=== PATIENT | female | born 1930 | race Caucasian/White ===

== ENCOUNTER 2017-01-15 10:21 | Inpatient (IN) | payer OTHER ==
--- NOTE | 2017-01-15 10:54 | PDOC ---
History of Present Illness <Susanna Whalen - Last Filed: 01/15/17 12:47> - General History Source: Patient, Family (Daughter and ) Exam Limitations: No Limitations - History of Present Illness Initial Comments: 01/15/17 11:42 The patient is a 86 year old female with significant PMH of coronary artery disease, myocardial infarction with stents, hypertension, hyperlipidemia and a right knee replacement who presents to the emergency department with lower extremity weakness that began approximately 10 days ago. The daughter states that the patient was fine about two weeks ago, but for the past 10 days has been unable to walk without a walker. The daughter reports that the patient drags her right leg when she walks. The daughter also reports recent memory loss. No other symptoms were reported by the patient. The patient is currently taking Livalo for her hyperlipidemia. The patient denies chest pain, shortness of breath, headache and dizziness. Denies fever, chills, nausea, vomit, diarrhea and constipation. Allergies: NKA Past surgical history: UT with stents Social history: No reported alcohol, drug, or alcohol use. PCP: Dr. Kristina Sexton <Bri Shook - Last Filed: 01/15/17 15:49> - General Chief Complaint: Weakness Stated Complaint: LEG WEAKNESS Time Seen by Provider: 01/15/17 10:54 Past History <Susanna Whalen - Last Filed: 01/15/17 12:47> <Bri Shook - Last Filed: 01/15/17 15:49> - Past Medical History Allergies/Adverse Reactions: Allergies Allergy/AdvReac Type Severity Reaction Status Date / Time rosuvastatin calcium AdvReac Verified 01/15/17 10:36 [From [place]] Home Medications: Ambulatory Orders Alprazolam [Xanax] 0.25 mg PO Q8H 01/15/17 Aspirin [ASA -] 81 mg PO DAILY 01/15/17 Diphenhydramine HCl [Benadryl -] 25 mg PO HS PRN 01/15/17 Esomeprazole Magnesium [Nexium 24Hr] 22.3 mg PO DAILY 01/15/17 Hydrochlorothiazide [Hctz -] 25 mg PO DAILY 01/15/17 Pitavastatin Calcium [Livalo] 2 mg PO DAILY 01/15/17 Ramipril 10 mg PO BID 01/15/17 Review of Systems - Review of Systems Able to Perform ROS?: Yes Comments:: 01/15/17 11:44 GENERAL/CONSTITUTIONAL: No fever or chills. No weakness. HEAD, EYES, EARS, NOSE AND THROAT: No change in vision. No ear pain or discharge. No sore throat. CARDIOVASCULAR: No chest pain or shortness of breath. RESPIRATORY: No cough, wheezing, or hemoptysis. GASTROINTESTINAL: No nausea, vomiting, diarrhea or constipation. GENITOURINARY: No dysuria, frequency, or change in urination. MUSCULOSKELETAL: (+) Lower extremity weakness. No neck or back pain. SKIN: No rash NEUROLOGIC: (+) Memory loss. No headache, vertigo, loss of consciousness. ENDOCRINE: No increased thirst. No abnormal weight change. HEMATOLOGIC/LYMPHATIC: No anemia, easy bleeding, or history of blood clots. ALLERGIC/IMMUNOLOGIC: No hives or skin allergy. <Bri Shook - Last Filed: 01/15/17 15:49> *Physical Exam - Vital Signs 01/15/17 11:51 Vital Signs: HR 83 Pulse 85 SpO2 97 RR 20 BP 165/88 - Physical Exam Comments: 01/15/17 11:46 GENERAL: Awake, alert, and fully oriented. HEAD: No signs of trauma EYES: PERRLA, EOMI, sclera anicteric, conjunctiva clear ENT: Auricles normal inspection, hearing grossly normal, nares patent, oropharynx clear without exudates. Moist mucosa NECK: Normal ROM, supple, no lymphadenopathy, JVD, or masses LUNGS: Breath sounds equal, clear to auscultation bilaterally. No wheezes, and no crackles HEART: Regular rate and rhythm, normal S1 and S2, no murmurs, rubs or gallops ABDOMEN: Soft, nontender, normoactive bowel sounds. No guarding, no rebound. No masses EXTREMITIES: (+) Right lower extremity weakness, 4/5 plantar flexion, 4/5 dorsiflexion. No clubbing or cyanosis. No cords, erythema, or tenderness NEUROLOGICAL: Cranial nerves II through XII grossly intact. Normal speech, normal gait SKIN: Warm, Dry, normal turgor, no rashes or lesions noted. <Bri Shook - Last Filed: 01/15/17 15:49> ED Treatment Course - LABORATORY CBC & Chemistry Diagram: 01/15/17 11:42 01/15/17 11:42 <Susanna Whalen - Last Filed: 01/15/17 12:47> - LABORATORY CBC & Chemistry Diagram: 01/15/17 11:42 01/15/17 11:42 <Bri Shook - Last Filed: 01/15/17 15:49> Medical Decision Making - Medical Decision Making 01/15/17 12:47 Pt presents to the ED complaining of generalized malaise and weakness for the last 10 days. On exam, I find subtle R foot and ankle weakness. Rest of exam and lab work are unremarkable. CT head results pending. Case discussed with Dr. Sexton--apparently the patient has a recent history of UT with similar presentation that lead to stents three months ago. Will admit for neurologic and cardiac work up. <Susanna Whalen - Last Filed: 01/15/17 12:47> - Medical Decision Making Exam: Chest XR Portable Who interpreted: Dr. Jerez Reviewed by: Dr. Whalen Impression: [id number] cardiomegaly. Mild atelectatic changes in the right lung base, medially. There is suggestion of a moderate-sized hiatus hernia. Correlation with CT scan would be more sensitive if clinically indicated. Exam: Chest PA Lat Who interpreted: Dr. Jerez Reviewed by: Dr. Whalen Hiatal hernia. No acute pulmonary pathology. Exam: Head CT w/o contrast Who interpreted: Dr. Jerez Reviewed by: Dr. Whalen Impression: Generalized volume loss with moderate to marked ventricular dilatation and periventricular chronic microvascular ischemic disease changes. No gross acute intracranial pathology is identified. Correlate clinically to determine further evaluation and follow-up. <Bri Shook - Last Filed: 01/15/17 15:49> *DC/Admit/Observation/Transfer - Discharge Dispostion Admit: Yes <Susanna Whalen - Last Filed: 01/15/17 12:47> - Attestations Scribe Attestion: Documentation prepared by Bri Shook, acting as medical secretary receptionist for Susanna Whalen MD. <Bri Shook - Last Filed: 01/15/17 15:49> Diagnosis at time of Disposition: Weakness - Discharge Dispostion Condition at time of disposition: Good
[2017-01-15 11:50] LABS: BASOPHIL 0.9 % (0-2.0); EOSINOPHIL 1.5 % (0-4.5); MCH 28.6 pg (25.7-33.7); MCHC 33.2 g/dl (32.0-36.0); MEAN CELL VOLUME 86.2 fl (80-96); MEAN PLT VOLUME 7.7 fl (7.5-11.1); PLATELET COUNT 279 K/MM3 (134-434); RDW 15.1 % (11.6-15.6); WHITE BLOOD COUNT 4.4 K/mm3 (4.0-10.0)
[2017-01-15 12:00] VITALS: BMI 28.2
[2017-01-15 12:13] LABS: ALBUMIN 3.6 g/dl (3.4-5.0); ANION GAP 8 (8-16); BILIRUBIN,TOTAL 0.4 mg/dL (0.2-1.0); CALCIUM 8.9 mg/dL (8.5-10.1); CO2 27 mmol/L (21-32); CREATININE 0.8 mg/dL (0.55-1.02); GLUCOSE,RANDOM 96 mg/dL (74-106); SGOT/AST 22 U/L (15-37); SGPT/ALT 22 U/L (12-78); TOT PROT 7.3 g/dl (6.4-8.2)
[2017-01-15 12:15] LABS: ALK PHOS 110 U/L (45-117); CPK 66 IU/L (26-192); TROPONIN I < 0.02 ng/ml (0.00-0.05)
--- NOTE | 2017-01-15 13:24 | HP ---
Admitting History and Physical - Primary Care Physician PCP: Kristina Sexton S - Admission Chief Complaint: R leg weakness, confusion History of Present Illness: The patient is a 86 year old female with significant PMH of coronary artery disease, myocardial infarction with stents, hypertension, hyperlipidemia and a right knee replacement who presents to the emergency department with lower extremity weakness that began approximately 10 days ago. The daughter states that the patient was fine about two weeks ago (she was going shopping with her ), but for the past 10 days has been unable to walk without a walker. The daughter reports that the patient drags her right leg when she walks. The daughter also reports recent memory loss and some lightheadedness last night *( pt almost felt like passing out but she did not). No other symptoms were reported by the patient. No falls no head trauma. The patient denies chest pain, shortness of breath, headache and dizziness. Denies fever, chills, nausea, vomit, diarrhea and constipation. Allergies: NKA Past surgical history: [place] with stents; R TKR Social history: No reported alcohol, drug, or alcohol use. d/w pt and daughter and daughter in law and at bedside History Source: Patient, Family Member, Medical Record - Past Medical History Cardiovascular: Yes: CAD, HTN, Hyperlipdemia, DE - Smoking History Smoking history: Never smoked Have you smoked in the past 12 months: No - Alcohol/Substance Use Hx Alcohol Use: No History of Substance Use: reports: None - Social History Usual Living Arrangement: Yes: With Spouse ADL: Independent History of Recent Travel: No Home Medications - Allergies Allergies/Adverse Reactions: Allergies Allergy/AdvReac Type Severity Reaction Status Date / Time rosuvastatin calcium AdvReac Verified 01/15/17 10:36 [From [facility]] - Home Medications Home Medications: Ambulatory Orders Alprazolam [Xanax] 0.25 mg PO Q8H 01/15/17 Aspirin [ASA -] 81 mg PO DAILY 01/15/17 Diphenhydramine HCl [Benadryl -] 25 mg PO HS PRN 01/15/17 Esomeprazole Magnesium [Nexium 24Hr] 22.3 mg PO DAILY 01/15/17 Hydrochlorothiazide [Hctz -] 25 mg PO DAILY 01/15/17 Pitavastatin Calcium [Livalo] 2 mg PO DAILY 01/15/17 Ramipril 10 mg PO BID 01/15/17 Family Disease History - Family Disease History Family History: Unremarkable Review of Systems - Review of Systems Constitutional: reports: Weakness (general). denies: Chills, Fever, Lethargy Eyes: denies: Blind Spots, Blurred Vision, Double Vision HENT: denies: Difficult Swallowing, Ear Pain Neck: denies: Stiffness, Tenderness Cardiovascular: denies: Chest Pain, Shortness of Breath Respiratory: denies: Cough, SOB Gastrointestinal: denies: Abdominal Pain, Constipation, Diarrhea, Vomiting Genitourinary: denies: Dysuria, Flank Pain Musculoskeletal: denies: Back Pain, Joint Swelling Integumentary: denies: Rash Neurological: reports: Confusion, Unsteady Gait, Weakness (RLE). denies: Change in LOC, Change in Speech, Dizziness, Numbness Hematology/Lymphatic: denies: Easily Bruised, Excessive Bleeding Psychiatric: denies: Anxiety, Depression Physical Examination Vital Signs: Vital Signs Temperature 97.8 F 01/15/17 10:21 Pulse Rate 94 H 01/15/17 10:21 Respiratory Rate 20 01/15/17 10:21 Blood Pressure 166/88 01/15/17 10:21 O2 Sat by Pulse Oximetry (%) 98 01/15/17 10:21 Constitutional: Yes: No Distress, Calm Eyes: Yes: Conjunctiva Clear HENT: Yes: Atraumatic Neck: Yes: Supple Cardiovascular: Yes: Regular Rate and Rhythm Respiratory: Yes: CTA Bilaterally Gastrointestinal: Yes: Soft. No: Distention, Tenderness Renal/: No: CVA Tenderness - Left, CVA Tenderness - Right Extremities: No: Calf Tenderness, Cold, Cool, Cyanosis Edema: No Integumentary: No: Rash, Venous Stasis Changes Neurological: Yes: WNL, Alert, Oriented ...Motor Strength: WNL, RLE (4/5) Psychiatric: Yes: WNL, Alert, Oriented. No: Agitated, Suicidal Ideation Labs: CBC, BMP 01/15/17 11:42 01/15/17 11:42 Imaging - Results Chest X-ray: Report Reviewed Other: Report Reviewed Assessment/Plan The patient is a 86 year old female with significant PMH of coronary artery disease, myocardial infarction with stents, hypertension, hyperlipidemia and a right knee replacement who presents to the emergency department with lower extremity weakness that began approximately 10 days ago and some recent memory loss. Presyncope but no fall no LOC admit to telemetry cardiology and neurology eval head CT negative; would check brain MRI if R TKR prosthesis is MRI compatible check UA UCx r/o UTI check caritd US, echo CXR noted; will check chest CT no IVC r/o mass continue meds DVT falls PFX d/w pt and family at bedside d/w pt do not get OOB alone, call for help if needs OOB - she understood and she said she will t time 75 min
--- NOTE | 2017-01-15 13:27 | EKG ---
Test Reason : Blood Pressure : / mmHG Vent. Rate : 079 BPM Atrial Rate : 079 BPM P-R Int : 134 ms QRS Dur : 086 ms QT Int : 384 ms P-R-T Axes : 040 023 059 degrees QTc Int : 440 ms NORMAL SINUS RHYTHM NORMAL ECG WHEN COMPARED WITH ECG OF 15-AUG-2006 17:18, NO SIGNIFICANT CHANGE WAS FOUND Confirmed by JESUS HERNANDEZ MD ([id number]) on 01/15/2017 1:27:21 PM Referred By: Confirmed By:JESUS HERNANDEZ MD
--- NOTE | 2017-01-15 14:08 | CON.CARD ---
Consult Consult Specialty:: Cardiology Referred by:: Kristina Sexton MD Reason for Consultation:: CAD h/o PR - History of Present Illness Chief Complaint: Weakness, lethargy, gait disturbance History of Present Illness: The patient is a 86 year old female with significant PMH of coronary artery disease s/p KAY LAD 03/08/2006, mid RCA IN [employer] with bridging collaterals on cath post demand ischemic injury in context of GI bleed, diastolic dysfunction , hypertension/HCVD, hyperlipidemia, s/p right CEA, 4.2 cm AAA and a right knee replacement who presents to the emergency department with lower extremity weakness that began approximately 10 days ago. The daughter states that the patient was fine about two weeks ago, but for the past 10 days has been unable to walk without a walker. The daughter reports that the patient drags her right leg when she walks. The daughter also reports recent memory loss. She denies cardiovascular sxs of chest pain, shortness of breath worse than baseline, near or true syncope, palpitations, orthopnea, PND or LE edema. Denies fever, chills, nausea, vomit, diarrhea and constipation. Has not been taking Bystolic 5 qd and taking Livalo 3 mg qd [facility] primary recommendations. Allergies: NKA Past surgical history: PR with stents Social history: No reported alcohol, drug, or alcohol use. PCP: Dr. Kristina Sexton - History Source History Provided By: Patient Limitations to Obtaining History: No Limitations - Alcohol/Substance Use Hx Alcohol Use: No - Smoking History Smoking history: Never smoked Have you smoked in the past 12 months: No Home Medications - Allergies Allergies/Adverse Reactions: Allergies Allergy/AdvReac Type Severity Reaction Status Date / Time rosuvastatin calcium AdvReac Verified 01/15/17 10:36 [From Crestor] - Home Medications Home Medications: Ambulatory Orders Alprazolam [Xanax] 0.25 mg PO Q8H 01/15/17 Aspirin [ASA -] 81 mg PO DAILY 01/15/17 Diphenhydramine HCl [Benadryl -] 25 mg PO HS PRN 01/15/17 Esomeprazole Magnesium [Nexium 24Hr] 22.3 mg PO DAILY 01/15/17 Hydrochlorothiazide [Hctz -] 25 mg PO DAILY 01/15/17 Pitavastatin Calcium [Livalo] 2 mg PO DAILY 01/15/17 Ramipril 10 mg PO BID 01/15/17 Review of Systems - Review of Systems Constitutional: reports: Lethargy, Malaise, Weakness Neurological: reports: Unsteady Gait Vital Signs: Vital Signs Temperature 97.8 F 01/15/17 10:21 Pulse Rate 96 H 01/15/17 13:53 Respiratory Rate 21 01/15/17 13:53 Blood Pressure 165/96 01/15/17 13:53 O2 Sat by Pulse Oximetry (%) 97 01/15/17 13:53 Constitutional: Yes: No Distress, Calm Neck: Yes: Supple Respiratory: Yes: Regular, CTA Bilaterally Gastrointestinal: Yes: Normal Bowel Sounds, Soft Cardiovascular: Yes: Regular Rate and Rhythm JVD: No Carotid Bruit: No Heart Sounds: Yes: S1, S2 Edema: No - Other Data Labs, Other Data: CBC, BMP 01/15/17 11:42 01/15/17 11:42 Troponin, BNP 01/15/17 11:42 Troponin I < 0.02 Troponin, BNP 01/15/17 11:42 Troponin I < 0.02 NSR @ 79 similar to previous 11/02/2016 Problem List - Problems (1) Coronary artery disease Code(s): I25.10 - ATHSCL HEART DISEASE OF [place] CORONARY ARTERY W/O ANG PCTRS Qualifiers: Coronary Disease-Associated Artery/Lesion type: [place] artery [place] vs. transplanted heart: [place] heart Associated angina: without angina Qualified Code(s): I25.10 - Atherosclerotic heart disease of [place] coronary artery without angina pectoris (2) S/P coronary artery stent placement Code(s): Z95.5 - PRESENCE OF CORONARY ANGIOPLASTY IMPLANT AND GRAFT (3) Hyperlipidemia Code(s): E78.5 - HYPERLIPIDEMIA, UNSPECIFIED Qualifiers: Hyperlipidemia type: pure hypercholesterolemia Qualified Code(s): E78.00 - Pure hypercholesterolemia, unspecified; E78.0 - Pure hypercholesterolemia (4) Hypertensive cardiomyopathy Code(s): I11.9 - HYPERTENSIVE HEART DISEASE WITHOUT HEART FAILURE; I43 - CARDIOMYOPATHY IN DISEASES CLASSIFIED ELSEWHERE Qualifiers: Heart failure presence: without heart failure Qualified Code(s): I11.9 - Hypertensive heart disease without heart failure; I43 - Cardiomyopathy in diseases classified elsewhere; I43 - Cardiomyopathy in diseases classified elsewhere; I43 - Cardiomyopathy in diseases classified elsewhere; I43 - Cardiomyopathy in diseases classified elsewhere (5) Diastolic dysfunction without heart failure Code(s): I51.9 - HEART DISEASE, UNSPECIFIED (6) Carotid stenosis, right Code(s): I65.21 - OCCLUSION AND STENOSIS OF RIGHT CAROTID ARTERY (7) History of right-sided carotid endarterectomy Code(s): Z98.890 - OTHER SPECIFIED POSTPROCEDURAL STATES (8) Abdominal aortic aneurysm (AAA) 3.0 cm to 5.0 cm in diameter in female Code(s): I71.4 - ABDOMINAL AORTIC ANEURYSM, WITHOUT RUPTURE (9) Weakness Code(s): R53.1 - WEAKNESS (10) Hyponatremia Code(s): E87.1 - HYPO-OSMOLALITY AND HYPONATREMIA (11) Gait disturbance Code(s): R26.9 - UNSPECIFIED ABNORMALITIES OF GAIT AND MOBILITY Assessment/Plan 1. Weakness, fatigue, gait instability, failure to thrive possible medication effects 2. CAD s/p PCI (stent), angina pectoris 3. HTN/HCVD 4. Hyperlipidemia 5. Diastolic dysfunction 6. Carotid stenosis s/p right CEA 7. AAA 4.2x4.0 cm 8. Early dementia 9. Hyponatermia referable to HCTZ 10. Myalgias with Crestor P:1. Ruling out for PR, check UA for occult UTI 2. D/c HCTZ, monitor Na recovery 3. Continue ASA 81 qd, Altace 10 bid, resume Bystolic 5 qd and challenge with pravachol 20 qhs as tolerated (Livalo not on formulary) 4. PT, gait training, review outpatient echo scheduled 11/17/2016 5. Thank you for consultative opportunity
[2017-01-15] MEDS: NEBIVOLOL 5 MG TABLET (FP) PO SCH (15:44)
--- NOTE | 2017-01-15 17:11 | CONSULT ---
Consult - text type - Consultation Consultation Note: Neurology History of Present Illness The patient is a 86 year old female with significant PMH of coronary artery disease, myocardial infarction with stents, hypertension, hyperlipidemia and a right knee replacement who presents to the emergency department with lower extremity weakness that began approximately 10 days ago. The daughter states that the patient was fine about two weeks ago, but for the past 10 days has been unable to walk without a walker. The daughter reports that the patient drags her right leg when she walks. The daughter also reports recent memory loss. No other symptoms were reported by the patient. The patient is currently taking Livalo for her hyperlipidemia. She completed CT head which did not show any acute changes. Her limitation may be complicated by prior R knee surgery. However, I would like to check MRI brain to rule out CVA and MRI L spine to evaulate cord. Discussed this with patient and daughter at bedside and they were in agreement. Past History - Past Medical History Allergies/Adverse Reactions: Allergies Allergy/AdvReac Type Severity Reaction Status Date / Time rosuvastatin calcium AdvReac Verified 01/15/17 10:36 [From [facility]] Home Medications: Ambulatory Orders Alprazolam [Xanax] 0.25 mg PO Q8H 01/15/17 Aspirin [ASA -] 81 mg PO DAILY 01/15/17 Diphenhydramine HCl [Benadryl -] 25 mg PO HS PRN 01/15/17 Esomeprazole Magnesium [Nexium 24Hr] 22.3 mg PO DAILY 01/15/17 Hydrochlorothiazide [Hctz -] 25 mg PO DAILY 01/15/17 Pitavastatin Calcium [Livalo] 2 mg PO DAILY 01/15/17 Ramipril 10 mg PO BID 01/15/17 Review of Systems - Review of Systems Able to Perform ROS?: Yes Comments:: 01/15/17 11:44 GENERAL/CONSTITUTIONAL: No fever or chills. No weakness. HEAD, EYES, EARS, NOSE AND THROAT: No change in vision. No ear pain or discharge. No sore throat. CARDIOVASCULAR: No chest pain or shortness of breath. RESPIRATORY: No cough, wheezing, or hemoptysis. GASTROINTESTINAL: No nausea, vomiting, diarrhea or constipation. GENITOURINARY: No dysuria, frequency, or change in urination. MUSCULOSKELETAL: (+) Lower extremity weakness. No neck or back pain. SKIN: No rash NEUROLOGIC: (+) Memory loss. No headache, vertigo, loss of consciousness. ENDOCRINE: No increased thirst. No abnormal weight change. HEMATOLOGIC/LYMPHATIC: No anemia, easy bleeding, or history of blood clots. ALLERGIC/IMMUNOLOGIC: No hives or skin allergy. *Physical Exam Vital Signs Period Temp Pulse Resp BP Sys/Patino Pulse Ox Last 24 Hr 97.8 F 68-96 16-21 158-166/88-96 97-99 GENERAL: Awake, alert, and fully oriented. HEAD: No signs of trauma EYES: PERRLA, EOMI, sclera anicteric, conjunctiva clear ENT: Auricles normal inspection, hearing grossly normal, nares patent, oropharynx clear without exudates. Moist mucosa NECK: Normal ROM, supple, no lymphadenopathy, JVD, or masses LUNGS: Breath sounds equal, clear to auscultation bilaterally. No wheezes, and no crackles HEART: Regular rate and rhythm, normal S1 and S2, no murmurs, rubs or gallops ABDOMEN: Soft, nontender, normoactive bowel sounds. No guarding, no rebound. No masses EXTREMITIES: (+) Right lower extremity weakness, 4/5 plantar flexion, 4/5 dorsiflexion. No clubbing or cyanosis. No cords, erythema, or tenderness NEUROLOGICAL: Cranial nerves II through XII grossly intact. Normal speech, sensory intact, 5-/5 in LLE, 4+/5 in RLE, gait deferred SKIN: Warm, Dry, normal turgor, no rashes or lesions noted. CBCD WBC 4.4 K/mm3 (4.0-10.0) 01/15/17 11:42 RBC 4.29 M/mm3 (3.60-5.2) 01/15/17 11:42 Hgb 12.3 GM/dL (10.7-15.3) 01/15/17 11:42 Hct 37.0 % (32.4-45.2) 01/15/17 11:42 MCV 86.2 fl (80-96) 01/15/17 11:42 MCHC 33.2 g/dl (32.0-36.0) 01/15/17 11:42 RDW 15.1 % (11.6-15.6) 01/15/17 11:42 Plt Count 279 K/MM3 (134-434) 01/15/17 11:42 MPV 7.7 fl (7.5-11.1) 01/15/17 11:42 CMP Sodium 134 mmol/L (136-145) L 01/15/17 11:42 Potassium 4.2 mmol/L (3.5-5.1) 01/15/17 11:42 Chloride 99 mmol/L (98-107) 01/15/17 11:42 Carbon Dioxide 27 mmol/L (21-32) 01/15/17 11:42 Anion Gap 8 (8-16) 01/15/17 11:42 BUN 17 mg/dL (7-18) 01/15/17 11:42 Creatinine 0.8 mg/dL (0.55-1.02) 01/15/17 11:42 Creat Clearance w eGFR > 60 (>60) 01/15/17 11:42 Calcium 8.9 mg/dL (8.5-10.1) 01/15/17 11:42 Total Bilirubin 0.4 mg/dL (0.2-1.0) 01/15/17 11:42 AST 22 U/L (15-37) 01/15/17 11:42 ALT 22 U/L (12-78) 01/15/17 11:42 Alkaline Phosphatase 110 U/L (45-117) 01/15/17 11:42 Total Protein 7.3 g/dl (6.4-8.2) 01/15/17 11:42 Albumin 3.6 g/dl (3.4-5.0) 01/15/17 11:42 CT head reviewed, Impression: Generalized volume loss with moderate to marked ventricular dilatation and periventricular chronic microvascular ischemic disease changes. No gross acute intracranial pathology is identified. Medical Decision Making 86 year old female with significant PMH of coronary artery disease, myocardial infarction with stents, hypertension, hyperlipidemia and a right knee replacement who presents to the emergency department with lower extremity weakness that began approximately 10 days ago. The daughter states that the patient was fine about two weeks ago, but for the past 10 days has been unable to walk without a walker. The daughter reports that the patient drags her right leg when she walks. The daughter also reports recent memory loss. No other symptoms were reported by the patient. The patient is currently taking Livalo for her hyperlipidemia. She completed CT head which did not show any acute changes. Her limitation may be complicated by prior R knee surgery. However, I would like to check MRI brain to rule out CVA and MRI L spine to evaulate cord. Discussed this with patient and daughter at bedside and they were in agreement. May benefit from physcial therapy and possibly rehab placement depending on etiology. Limitation may be more mechanical and Orthopedic in nature but will pursue work up at this time to further evaluate. Consider changing Livalo, possible myagia 2/2 to medication.
[2017-01-15] MEDS: RAMIPRIL 5 MG CAPSULE (FP) PO SCH (21:40)
[2017-01-15] MEDS: HEPARIN NA (PORCINE) 5,000 UNITS/ML 1ML VIAL SQ SCH (21:40)
[2017-01-15] MEDS ORDERED: ATORVASTATIN CA 10 MG TABLET (FP) PO SCH (22:00)
[2017-01-16] MEDS ORDERED: ACETAMINOPHEN 325 MG TABLET (FP) PO PRN (01:00)
[2017-01-16 08:00] LABS: CPK 82 IU/L (26-192)
[2017-01-16 08:06] LABS: THYROID STIMULATING HORMONE 1.84 uIU/ml (0.358-3.74); TROPONIN I < 0.02 ng/ml (0.00-0.05)
--- NOTE | 2017-01-16 08:20 | PN ---
Progress Note, Physician Chief Complaint: OOB to chair; NAD VSS no new c/o consults and tests reviewed and d/w pt - Current Medication List Current Medications: Active Medications Acetaminophen (Tylenol -) 650 mg PO Q6H PRN PRN Reason: FEVER OR PAIN Last Admin: 01/16/17 01:07 Dose: 650 mg Aspirin (Asa -) 81 mg PO DAILY [facility] Atorvastatin Calcium (Lipitor -) 10 mg PO HS [facility] Last Admin: 01/15/17 21:40 Dose: 10 mg Heparin Sodium (Porcine) (Heparin -) 5,000 unit SQ BID [facility] Last Admin: 01/15/17 21:40 Dose: 5,000 unit Nebivolol (Bystolic -) 5 mg PO DAILY [facility] Last Admin: 01/15/17 15:44 Dose: 5 mg Ramipril (Altace -) 10 mg PO BID [facility] Last Admin: 01/15/17 21:40 Dose: 10 mg - Objective Vital Signs: Vital Signs Temperature 97.5 F L 01/16/17 06:49 Pulse Rate 73 01/16/17 06:49 Respiratory Rate 20 01/16/17 06:49 Blood Pressure 160/82 01/16/17 06:49 O2 Sat by Pulse Oximetry (%) 97 01/15/17 21:00 Constitutional: Yes: No Distress, Calm Eyes: Yes: Conjunctiva Clear HENT: Yes: Atraumatic Neck: Yes: Supple Cardiovascular: Yes: Regular Rate and Rhythm Respiratory: Yes: CTA Bilaterally Gastrointestinal: Yes: Soft. No: Distention Genitourinary: No: CVA Tenderness - Left, CVA Tenderness - Right, Hematuria Musculoskeletal: No: Joint Stiffness, Joint Swelling Extremities: No: Cold, Cool, Cyanosis Edema: No Integumentary: No: Rash, Venous Stasis Changes Neurological: Yes: WNL, Alert, Oriented Psychiatric: Yes: WNL, Alert, Oriented. No: Agitated, Suicidal Ideation Labs: CBC, BMP 01/15/17 11:42 01/15/17 11:42 - ....Imaging Other: Report Reviewed Assessment/Plan The patient is a 86 year old female with significant PMH of coronary artery disease, myocardial infarction with stents, hypertension, hyperlipidemia and a right knee replacement who presents to the emergency department with lower extremity weakness that began approximately 10 days ago and some recent memory loss. Presyncope but no fall no LOC admit to telemetry cardiology and neurology f/u head CT negative; will check brain and sp;ine MRI - d/w pt's family knee prosthesis OK is MRI compatible and the cardiac stent is also MRI compatible. check UA UCx r/o UTI; labs pending as ordered check carotid US, echo CXR noted; will check chest CT no IVC r/o mass continue meds PT rtehab eval DVT falls PFX d/w pt and staff again d/w pt do not get OOB alone, call for help if needs OOB - she understood and she said she will t time 40 min
--- NOTE | 2017-01-16 08:53 | PN ---
Progress Note (short form) - Note Progress Note: Chief Complaint: Event noted, notes reviewed, denies any chest pain or dyspnea, weakness is persistent, evaluation in progress History of Present Illness: Seen and examined on telemetry. Event noted, notes reviewed, denies any chest pain or dyspnea, weakness is persistent, evaluation in progress There are no absolute contraindication in proceeding with planned MRI examination from the cardiovascular point of view since her PCI/stent was performed 03/08/2006 and her last coronary agiography was 01/20/2017 and no inetrvention was warranted Medications: Current Medications Acetaminophen (Tylenol -) 650 mg PO Q6H PRN PRN Reason: FEVER OR PAIN Last Admin: 01/16/17 01:07 Dose: 650 mg Aspirin (Asa -) 81 mg PO DAILY [facility] Atorvastatin Calcium (Lipitor -) 10 mg PO HS [facility] Last Admin: 01/15/17 21:40 Dose: 10 mg Heparin Sodium (Porcine) (Heparin -) 5,000 unit SQ BID [facility] Last Admin: 01/15/17 21:40 Dose: 5,000 unit Nebivolol (Bystolic -) 5 mg PO DAILY [facility] Last Admin: 01/15/17 15:44 Dose: 5 mg Ramipril (Altace -) 10 mg PO BID [facility] Last Admin: 01/15/17 21:40 Dose: 10 mg Review of Systems Cardiovascular: As noted above Respiratory: denies: Cough or Sputum Production Gastrointestinal: denies: Nausea, Vomiting, Diarrhea, Constipation or Abdominal Discomfort Musculoskeletal: Lower Extremity weakness Endocrine: No Symptoms Reported Vital Signs: Last Vital Signs Temp Pulse Resp BP Pulse Ox 97.5 F L 73 20 160/82 97 01/16/17 06:49 01/16/17 06:49 01/16/17 06:49 01/16/17 06:49 01/15/17 21:00 Intake & Output 01/13/17 01/14/17 01/15/17 01/16/17 23:59 23:59 23:59 23:59 Intake Total 300 240 Balance 300 240 Weight 175 lb Constitutional: No Distress, Calm Neck: Supple Negative JVD No Bruit Respiratory: Clear to A&P Bilaterally Cardiovascular: S1 S2 Regular Rate and Rhythm Gastrointestinal: Soft Benign Normal Bowel Sounds Ext: No Edema Labs: CBC, BMP 01/15/17 11:42 01/15/17 11:42 Hepatic Panel Total Bilirubin 0.4 mg/dL (0.2-1.0) 01/15/17 11:42 AST 22 U/L (15-37) 01/15/17 11:42 ALT 22 U/L (12-78) 01/15/17 11:42 Alkaline Phosphatase 110 U/L (45-117) 01/15/17 11:42 Albumin 3.6 g/dl (3.4-5.0) 01/15/17 11:42 Troponin, BNP 01/15/17 01/16/17 11:42 05:35 Troponin I < 0.02 < 0.02 Assessment/Plan ASSESSMENT: 1. Bilateral lower extremity weakness with gait instability, etiology to be determined 2. CAD post PCI (stent) angina pectoris 3. 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 HTN/HCVD 5. Hyperlipidemia 6. Carotid stenosis post right CEA 7. History of abdominal aortic aneurysm 8. Organic brain syndrome/early dementia 9. Hyponatermia most likely referable to HCTZ therapy 10. History of myalgia related to Crestor therapy administration PLAN: 1. Continue ASA 2. Continue Altace 3. Continue Bystolic 4. Hold statin therapy and resume Livalo or alternative statin therapy post D/C home 5. Carotid doppler study for evaluation of disease progression 6. As outlined above regarding proceeding with MRI examination Jose Juan Pinzon MD
--- NOTE | 2017-01-16 09:11 | PN ---
Progress Note (short form) - Note Progress Note: Neurology History of Present Illness The patient is a 86 year old female with significant PMH of coronary artery disease, myocardial infarction with stents, hypertension, hyperlipidemia and a right knee replacement who presents to the emergency department with lower extremity weakness that began approximately 10 days ago. The daughter stated that the patient was fine about two weeks ago, but for the past 10 days has been unable to walk without a walker. The daughter reports that the patient drags her right leg when she walks. The daughter reported recent memory loss. No other symptoms were reported by the patient. The patient is currently taking Livalo for her hyperlipidemia. She completed CT head which did not show any acute changes. Her limitation may be complicated by prior R knee surgery. However, I would like to check MRI brain to rule out CVA and MRI L spine to evaulate cord. Discussed this with patient and daughter at bedside yesterday and they were in agreement. The patient today is sitting up in her chair, having breakfast, and does report feeling better. Her exam is limited by pressure pain on strength testing and may be more due to myalgia as opposed to a nerve root or central etiology. AWaiting imaging studies for further diagnosis. Active Medications Acetaminophen (Tylenol -) 650 mg PO Q6H PRN PRN Reason: FEVER OR PAIN Last Admin: 01/16/17 01:07 Dose: 650 mg Aspirin (Asa -) 81 mg PO DAILY [facility] Atorvastatin Calcium (Lipitor -) 10 mg PO HS [facility] Last Admin: 01/15/17 21:40 Dose: 10 mg Heparin Sodium (Porcine) (Heparin -) 5,000 unit SQ BID [facility] Last Admin: 01/15/17 21:40 Dose: 5,000 unit Nebivolol (Bystolic -) 5 mg PO DAILY [facility] Last Admin: 01/15/17 15:44 Dose: 5 mg Ramipril (Altace -) 10 mg PO BID [facility] Last Admin: 01/15/17 21:40 Dose: 10 mg *Physical Exam Vital Signs Period Temp Pulse Resp BP Sys/Patino Pulse Ox Last 24 Hr 97.5 F-98.2 F 68-96 16-21 141-182/77-96 97-99 GENERAL: Awake, alert, and fully oriented. HEAD: No signs of trauma EYES: PERRLA, EOMI, sclera anicteric, conjunctiva clear ENT: Auricles normal inspection, hearing grossly normal, nares patent, oropharynx clear without exudates. Moist mucosa NECK: Normal ROM, supple, no lymphadenopathy, JVD, or masses LUNGS: Breath sounds equal, clear to auscultation bilaterally. No wheezes, and no crackles HEART: Regular rate and rhythm, normal S1 and S2, no murmurs, rubs or gallops ABDOMEN: Soft, nontender, normoactive bowel sounds. No guarding, no rebound. No masses EXTREMITIES: (+) Right lower extremity weakness, 4/5 plantar flexion, 4/5 dorsiflexion. No clubbing or cyanosis. No cords, erythema, or tenderness NEUROLOGICAL: Cranial nerves II through XII grossly intact. Normal speech, sensory intact, 5-/5 in LLE, 4+/5 in RLE, gait deferred SKIN: Warm, Dry, normal turgor, no rashes or lesions noted. CBCD WBC 4.4 K/mm3 (4.0-10.0) 01/15/17 11:42 RBC 4.29 M/mm3 (3.60-5.2) 01/15/17 11:42 Hgb 12.3 GM/dL (10.7-15.3) 01/15/17 11:42 Hct 37.0 % (32.4-45.2) 01/15/17 11:42 MCV 86.2 fl (80-96) 01/15/17 11:42 MCHC 33.2 g/dl (32.0-36.0) 01/15/17 11:42 RDW 15.1 % (11.6-15.6) 01/15/17 11:42 Plt Count 279 K/MM3 (134-434) 01/15/17 11:42 MPV 7.7 fl (7.5-11.1) 01/15/17 11:42 CMP Sodium 134 mmol/L (136-145) L 01/15/17 11:42 Potassium 4.2 mmol/L (3.5-5.1) 01/15/17 11:42 Chloride 99 mmol/L (98-107) 01/15/17 11:42 Carbon Dioxide 27 mmol/L (21-32) 01/15/17 11:42 Anion Gap 8 (8-16) 01/15/17 11:42 BUN 17 mg/dL (7-18) 01/15/17 11:42 Creatinine 0.8 mg/dL (0.55-1.02) 01/15/17 11:42 Creat Clearance w eGFR > 60 (>60) 01/15/17 11:42 Calcium 8.9 mg/dL (8.5-10.1) 01/15/17 11:42 Total Bilirubin 0.4 mg/dL (0.2-1.0) 01/15/17 11:42 AST 22 U/L (15-37) 01/15/17 11:42 ALT 22 U/L (12-78) 01/15/17 11:42 Alkaline Phosphatase 110 U/L (45-117) 01/15/17 11:42 Total Protein 7.3 g/dl (6.4-8.2) 01/15/17 11:42 Albumin 3.6 g/dl (3.4-5.0) 01/15/17 11:42 CT head reviewed, Impression: Generalized volume loss with moderate to marked ventricular dilatation and periventricular chronic microvascular ischemic disease changes. No gross acute intracranial pathology is identified MRI Brain & MRI L spine ordered Medical Decision Making 86 year old female with significant PMH of coronary artery disease, myocardial infarction with stents, hypertension, hyperlipidemia and a right knee replacement who presents to the emergency department with lower extremity weakness that began approximately 10 days ago. The daughter states that the patient was fine about two weeks ago, but for the past 10 days has been unable to walk without a walker. The daughter reports that the patient drags her right leg when she walks. The daughter also reports recent memory loss. No other symptoms were reported by the patient. The patient is currently taking Livalo for her hyperlipidemia. She completed CT head which did not show any acute changes. Her limitation may be complicated by prior R knee surgery. However, I would like to check MRI brain to rule out CVA and MRI L spine to evaulate cord. Discussed this with patient and daughter at bedside and they were in agreement. May benefit from physcial therapy and possibly rehab placement depending on etiology. Limitation may be more mechanical and Orthopedic in nature but will pursue work up at this time to further evaluate. Livalo changed to Lipitor, possible myagia 2/2 to medication.
[2017-01-16] MEDS ORDERED: PT OWN MED DRAWER 7, Y5N ONE (11:02)
[2017-01-16] MEDS: HEPARIN NA (PORCINE) 5,000 UNITS/ML 1ML VIAL SQ SCH ×2 (11:14→21:08)
[2017-01-16] MEDS: ASPIRIN 81 MG CHEWABLE TABLETS PO SCH (11:14)
[2017-01-16] MEDS: RAMIPRIL 5 MG CAPSULE (FP) PO SCH ×2 (11:14→21:08)
[2017-01-16] MEDS: NEBIVOLOL 5 MG TABLET (FP) PO SCH (13:40)
[2017-01-17] MEDS ORDERED: PT OWN MED DRAWER 7, Y5N ONE (08:50)
[2017-01-17] MEDS: RAMIPRIL 5 MG CAPSULE (FP) PO SCH ×2 (09:00→22:03)
[2017-01-17] MEDS: HEPARIN NA (PORCINE) 5,000 UNITS/ML 1ML VIAL SQ SCH ×2 (09:00→22:03)
[2017-01-17] MEDS: NEBIVOLOL 5 MG TABLET (FP) PO SCH (09:00)
[2017-01-17] MEDS: ASPIRIN 81 MG CHEWABLE TABLETS PO SCH (09:00)
--- NOTE | 2017-01-17 09:43 | PN ---
Progress Note (short form) - Note Progress Note: Neurology History of Present Illness The patient is a 86 year old female with significant PMH of coronary artery disease, myocardial infarction with stents, hypertension, hyperlipidemia and a right knee replacement who presents to the emergency department with lower extremity weakness that began approximately 10 days ago. The daughter stated that the patient was fine about two weeks ago, but for the past 10 days has been unable to walk without a walker. The daughter reports that the patient drags her right leg when she walks. The daughter reported recent memory loss. No other symptoms were reported by the patient. The patient is currently taking Livalo for her hyperlipidemia. She completed CT head which did not show any acute changes. Her limitation may be complicated by prior R knee surgery. However, I would like to check MRI brain to rule out CVA and MRI L spine to evaulate cord. There was a question regarding safety with stent being MRI compatible and therefore MRI not yet done. The patient today again is sitting up in her chair, having breakfast, and does report feeling better. Her exam is limited by pressure pain on strength testing and may be more due to myalgia as opposed to a nerve root or central etiology. AWaiting imaging studies for further diagnosis. Active Medications Acetaminophen (Tylenol -) 650 mg PO Q6H PRN PRN Reason: FEVER OR PAIN Last Admin: 01/16/17 01:07 Dose: 650 mg Aspirin (Asa -) 81 mg PO DAILY [facility] Last Admin: 01/17/17 09:00 Dose: 81 mg Heparin Sodium (Porcine) (Heparin -) 5,000 unit SQ BID [facility] Last Admin: 01/17/17 09:00 Dose: 5,000 unit Nebivolol (Bystolic -) 5 mg PO DAILY [facility] Last Admin: 01/17/17 09:00 Dose: 5 mg Ramipril (Altace -) 10 mg PO BID [facility] Last Admin: 01/17/17 09:00 Dose: 10 mg *Physical Exam Vital Signs Temperature 97.4 F L 01/17/17 06:00 Pulse Rate 84 01/17/17 06:00 Respiratory Rate 20 01/17/17 06:00 Blood Pressure 130/72 01/17/17 06:00 O2 Sat by Pulse Oximetry (%) 93 L 01/16/17 21:00 GENERAL: Awake, alert, and fully oriented. HEAD: No signs of trauma EYES: PERRLA, EOMI, sclera anicteric, conjunctiva clear ENT: Auricles normal inspection, hearing grossly normal, nares patent, oropharynx clear without exudates. Moist mucosa NECK: Normal ROM, supple, no lymphadenopathy, JVD, or masses LUNGS: Breath sounds equal, clear to auscultation bilaterally. No wheezes, and no crackles HEART: Regular rate and rhythm, normal S1 and S2, no murmurs, rubs or gallops ABDOMEN: Soft, nontender, normoactive bowel sounds. No guarding, no rebound. No masses EXTREMITIES: (+) Right lower extremity weakness, 4/5 plantar flexion, 4/5 dorsiflexion. No clubbing or cyanosis. No cords, erythema, or tenderness NEUROLOGICAL: Cranial nerves II through XII grossly intact. Normal speech, sensory intact, 5-/5 in LLE, 4+/5 in RLE, gait deferred SKIN: Warm, Dry, normal turgor, no rashes or lesions noted. CBCD WBC 4.4 K/mm3 (4.0-10.0) 01/15/17 11:42 RBC 4.29 M/mm3 (3.60-5.2) 01/15/17 11:42 Hgb 12.3 GM/dL (10.7-15.3) 01/15/17 11:42 Hct 37.0 % (32.4-45.2) 01/15/17 11:42 MCV 86.2 fl (80-96) 01/15/17 11:42 MCHC 33.2 g/dl (32.0-36.0) 01/15/17 11:42 RDW 15.1 % (11.6-15.6) 01/15/17 11:42 Plt Count 279 K/MM3 (134-434) 01/15/17 11:42 MPV 7.7 fl (7.5-11.1) 01/15/17 11:42 CMP Sodium 134 mmol/L (136-145) L 01/15/17 11:42 Potassium 4.2 mmol/L (3.5-5.1) 01/15/17 11:42 Chloride 99 mmol/L (98-107) 01/15/17 11:42 Carbon Dioxide 27 mmol/L (21-32) 01/15/17 11:42 Anion Gap 8 (8-16) 01/15/17 11:42 BUN 17 mg/dL (7-18) 01/15/17 11:42 Creatinine 0.8 mg/dL (0.55-1.02) 01/15/17 11:42 Creat Clearance w eGFR > 60 (>60) 01/15/17 11:42 Calcium 8.9 mg/dL (8.5-10.1) 01/15/17 11:42 Total Bilirubin 0.4 mg/dL (0.2-1.0) 01/15/17 11:42 AST 22 U/L (15-37) 01/15/17 11:42 ALT 22 U/L (12-78) 01/15/17 11:42 Alkaline Phosphatase 110 U/L (45-117) 01/15/17 11:42 Total Protein 7.3 g/dl (6.4-8.2) 01/15/17 11:42 Albumin 3.6 g/dl (3.4-5.0) 01/15/17 11:42 CT head reviewed, Impression: Generalized volume loss with moderate to marked ventricular dilatation and periventricular chronic microvascular ischemic disease changes. No gross acute intracranial pathology is identified MRI Brain & MRI L spine ordered Medical Decision Making 86 year old female with significant PMH of coronary artery disease, myocardial infarction with stents, hypertension, hyperlipidemia and a right knee replacement who presents to the emergency department with lower extremity weakness that began approximately 10 days ago. The daughter states that the patient was fine about two weeks ago, but for the past 10 days has been unable to walk without a walker. The daughter reports that the patient drags her right leg when she walks. The daughter also reports recent memory loss. No other symptoms were reported by the patient. The patient is currently taking Livalo for her hyperlipidemia. She completed CT head which did not show any acute changes. Her limitation may be complicated by prior R knee surgery. However, I would like to check MRI brain to rule out CVA and MRI L spine to evaulate cord, stent concern prevented MRI thus far. Nurse aware and is coordinating. May benefit from physcial therapy and possibly rehab placement depending on etiology. Limitation may be more mechanical and Orthopedic in nature but will pursue work up at this time to further evaluate. Livalo changed to Lipitor, possible myagia 2/2 to medication.
--- NOTE | 2017-01-17 12:03 | PN ---
Progress Note, Physician Chief Complaint: OOB to chair no new c/o - Current Medication List Current Medications: Active Medications Acetaminophen (Tylenol -) 650 mg PO Q6H PRN PRN Reason: FEVER OR PAIN Last Admin: 01/16/17 01:07 Dose: 650 mg Aspirin (Asa -) 81 mg PO DAILY [facility] Last Admin: 01/17/17 09:00 Dose: 81 mg Heparin Sodium (Porcine) (Heparin -) 5,000 unit SQ BID [facility] Last Admin: 01/17/17 09:00 Dose: 5,000 unit Nebivolol (Bystolic -) 5 mg PO DAILY [facility] Last Admin: 01/17/17 09:00 Dose: 5 mg Pantoprazole Sodium (Protonix -) 40 mg PO DAILY [facility] Ramipril (Altace -) 10 mg PO BID [facility] Last Admin: 01/17/17 09:00 Dose: 10 mg - Objective Vital Signs: Vital Signs Temperature 97.4 F L 01/17/17 06:00 Pulse Rate 84 01/17/17 06:00 Respiratory Rate 20 01/17/17 06:00 Blood Pressure 130/72 01/17/17 06:00 O2 Sat by Pulse Oximetry (%) 94 L 01/17/17 09:00 Constitutional: Yes: No Distress, Calm Eyes: Yes: Conjunctiva Clear HENT: Yes: Atraumatic Neck: Yes: Supple Cardiovascular: Yes: Regular Rate and Rhythm Respiratory: Yes: CTA Bilaterally Gastrointestinal: Yes: Soft. No: Distention, Tenderness Musculoskeletal: No: Joint Stiffness, Joint Swelling Extremities: No: Cold, Cool Edema: No Integumentary: No: Rash, Venous Stasis Changes Neurological: Yes: WNL, Alert, Oriented ...Motor Strength: WNL Psychiatric: Yes: WNL, Alert, Oriented. No: Agitated Labs: CBC, BMP 01/15/17 11:42 01/15/17 11:42 - ....Imaging Other: Report Reviewed Assessment/Plan The patient is a 86 year old female with significant PMH of coronary artery disease, myocardial infarction with stents, hypertension, hyperlipidemia and a right knee replacement who presents to the emergency department with lower extremity weakness and some recent memory loss. Presyncope but no fall no LOC admitted to telemetry cardiology and neurology f/u d/w pt and daughter in law chest CT results: large HH; small 3 mm pleural base nodule - will ask GI eval in H and will need chest CT f/u in 3-4 months outpt PT rehab and CM eval DVT falls PFX d/w pt and staff again d/w pt do not get OOB alone, call for help if needs OOB - she understood and she said she will
[2017-01-17] MEDS: PANTOPRAZOLE 40 MG TABLET (FP) PO SCH (12:20)
--- NOTE | 2017-01-17 12:53 | PN ---
Progress Note, Physician History of Present Illness: Ambulating with assistance earlier today. - Current Medication List Current Medications: Active Medications Acetaminophen (Tylenol -) 650 mg PO Q6H PRN PRN Reason: FEVER OR PAIN Last Admin: 01/16/17 01:07 Dose: 650 mg Aspirin (Asa -) 81 mg PO DAILY [facility] Last Admin: 01/17/17 09:00 Dose: 81 mg Heparin Sodium (Porcine) (Heparin -) 5,000 unit SQ BID [facility] Last Admin: 01/17/17 09:00 Dose: 5,000 unit Nebivolol (Bystolic -) 5 mg PO DAILY [facility] Last Admin: 01/17/17 09:00 Dose: 5 mg Pantoprazole Sodium (Protonix -) 40 mg PO DAILY [facility] Last Admin: 01/17/17 12:20 Dose: 40 mg Ramipril (Altace -) 10 mg PO BID [facility] Last Admin: 01/17/17 09:00 Dose: 10 mg - Objective Vital Signs: Vital Signs Temperature 97.4 F L 01/17/17 06:00 Pulse Rate 84 01/17/17 06:00 Respiratory Rate 20 01/17/17 06:00 Blood Pressure 130/72 01/17/17 06:00 O2 Sat by Pulse Oximetry (%) 94 L 01/17/17 09:00 Constitutional: Yes: No Distress, Calm Neck: Yes: Supple Cardiovascular: Yes: Regular Rate and Rhythm Respiratory: Yes: Regular, Diminished Gastrointestinal: Yes: Normal Bowel Sounds, Soft Edema: No Labs: CBC, BMP 01/15/17 11:42 01/15/17 11:42 Problem List - Problems (1) Coronary artery disease Code(s): I25.10 - ATHSCL HEART DISEASE OF [place] CORONARY ARTERY W/O ANG PCTRS Qualifiers: Coronary Disease-Associated Artery/Lesion type: [place] artery [place] vs. transplanted heart: [place] heart Associated angina: without angina Qualified Code(s): I25.10 - Atherosclerotic heart disease of [place] coronary artery without angina pectoris (2) S/P coronary artery stent placement Code(s): Z95.5 - PRESENCE OF CORONARY ANGIOPLASTY IMPLANT AND GRAFT (3) Hyperlipidemia Code(s): E78.5 - HYPERLIPIDEMIA, UNSPECIFIED Qualifiers: Hyperlipidemia type: pure hypercholesterolemia Qualified Code(s): E78.00 - Pure hypercholesterolemia, unspecified; E78.0 - Pure hypercholesterolemia (4) Hypertensive cardiomyopathy Code(s): I11.9 - HYPERTENSIVE HEART DISEASE WITHOUT HEART FAILURE; I43 - CARDIOMYOPATHY IN DISEASES CLASSIFIED ELSEWHERE Qualifiers: Heart failure presence: without heart failure Qualified Code(s): I11.9 - Hypertensive heart disease without heart failure; I43 - Cardiomyopathy in diseases classified elsewhere; I43 - Cardiomyopathy in diseases classified elsewhere; I43 - Cardiomyopathy in diseases classified elsewhere; I43 - Cardiomyopathy in diseases classified elsewhere (5) Diastolic dysfunction without heart failure Code(s): I51.9 - HEART DISEASE, UNSPECIFIED (6) Carotid stenosis, right Code(s): I65.21 - OCCLUSION AND STENOSIS OF RIGHT CAROTID ARTERY (7) History of right-sided carotid endarterectomy Code(s): Z98.890 - OTHER SPECIFIED POSTPROCEDURAL STATES (8) Abdominal aortic aneurysm (AAA) 3.0 cm to 5.0 cm in diameter in female Code(s): I71.4 - ABDOMINAL AORTIC ANEURYSM, WITHOUT RUPTURE (9) Weakness Code(s): R53.1 - WEAKNESS (10) Hyponatremia Code(s): E87.1 - HYPO-OSMOLALITY AND HYPONATREMIA (11) Gait disturbance Code(s): R26.9 - UNSPECIFIED ABNORMALITIES OF GAIT AND MOBILITY Assessment/Plan 01/16/2017 Echo: Normal biventricular size and fxn with mild TR 1. Bilateral lower extremity weakness with gait instability, etiology to be determined 2. CAD post PCI (stent) angina pectoris 3. 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 HTN/HCVD 5. Hyperlipidemia 6. Carotid stenosis post right CEA 7. History of abdominal aortic aneurysm 8. Organic brain syndrome/early dementia 9. Hyponatermia most likely referable to HCTZ therapy 10. History of myalgia related to Crestor therapy administration 11. Large hiatal hernia PLAN: 1. Continue ASA 81 qd 2. Continue Altace 10 bid 3. Continue Bystolic 5 qd 4. Hold statin therapy and resume Livalo or alternative statin therapy post D/C home 5. Carotid doppler negative for flow-limiting stenosis 6. As outlined above regarding proceeding with MRI examination 7. PT and gait training pending
[2017-01-18 07:55] LABS: BASOPHIL 0.9 % (0-2.0); EOSINOPHIL 2.5 % (0-4.5); MCH 28.8 pg (25.7-33.7); MCHC 33.5 g/dl (32.0-36.0); MEAN CELL VOLUME 85.9 fl (80-96); MEAN PLT VOLUME 7.8 fl (7.5-11.1); NEUTROPHILS 54.8 % (42.8-82.8); PLATELET COUNT 290 K/MM3 (134-434); RDW 15.3 % (11.6-15.6); WHITE BLOOD COUNT 4.8 K/mm3 (4.0-10.0)
[2017-01-18 08:26] LABS: ANION GAP 7 (8-16); CALCIUM 8.9 mg/dL (8.5-10.1); CO2 27 mmol/L (21-32); CREATININE 0.9 mg/dL (0.55-1.02); GLUCOSE,RANDOM 88 mg/dL (74-106)
--- NOTE | 2017-01-18 09:01 | PN ---
Progress Note, Physician Chief Complaint: Not in distress History of Present Illness: Patient was seen and examined. Awake and alert. Chart was reviewed Denies chest pain, SOB or palpitations - Current Medication List Current Medications: Active Medications Acetaminophen (Tylenol -) 650 mg PO Q6H PRN PRN Reason: FEVER OR PAIN Last Admin: 01/16/17 01:07 Dose: 650 mg Aspirin (Asa -) 81 mg PO DAILY [facility] Last Admin: 01/17/17 09:00 Dose: 81 mg Heparin Sodium (Porcine) (Heparin -) 5,000 unit SQ BID [facility] Last Admin: 01/17/17 22:03 Dose: 5,000 unit Nebivolol (Bystolic -) 5 mg PO DAILY [facility] Last Admin: 01/17/17 09:00 Dose: 5 mg Pantoprazole Sodium (Protonix -) 40 mg PO DAILY [facility] Last Admin: 01/17/17 12:20 Dose: 40 mg Ramipril (Altace -) 10 mg PO BID [facility] Last Admin: 01/17/17 22:03 Dose: 10 mg - Objective Vital Signs: Vital Signs Temperature 98.3 F 01/18/17 06:27 Pulse Rate 73 01/18/17 06:27 Respiratory Rate 18 01/18/17 06:27 Blood Pressure 117/64 01/18/17 06:27 O2 Sat by Pulse Oximetry (%) 94 L 01/17/17 21:00 Neck: Yes: Supple Cardiovascular: Yes: Regular Rate and Rhythm, S1, S2 Respiratory: Yes: CTA Bilaterally Gastrointestinal: Yes: Normal Bowel Sounds, Soft. No: Tenderness Edema: No Additional Findings/Remarks: - Review of Systems Constitutional: denies: Fever Cardiovascular: denies: Chest Pain, Shortness of Breath. denies: Palpitations Respiratory: denies: Cough, SOB. denies: Hemoptysis, Orthopnea, PND Gastrointestinal: denies: Abdominal Pain, Constipation, Diarrhea, Melena, Nausea , Rectal Bleeding, Vomiting Genitourinary: denies: Dysuria, Hematuria Neurological: denies: Dizziness, Headache, Seizure, Syncope Labs: CBC, BMP 01/18/17 06:30 01/18/17 06:30 Problem List - Problems (1) HTN (hypertension) Code(s): I10 - ESSENTIAL (PRIMARY) HYPERTENSION Qualifiers: Hypertension type: essential hypertension Qualified Code(s): I10 - Essential (primary) hypertension (2) Abdominal aortic aneurysm (AAA) 3.0 cm to 5.0 cm in diameter in female Code(s): I71.4 - ABDOMINAL AORTIC ANEURYSM, WITHOUT RUPTURE (3) Coronary artery disease Code(s): I25.10 - ATHSCL HEART DISEASE OF [place] CORONARY ARTERY W/O ANG PCTRS Qualifiers: Coronary Disease-Associated Artery/Lesion type: [place] artery [place] vs. transplanted heart: [place] heart Associated angina: without angina Qualified Code(s): I25.10 - Atherosclerotic heart disease of [place] coronary artery without angina pectoris (4) Diastolic dysfunction without heart failure Code(s): I51.9 - HEART DISEASE, UNSPECIFIED (5) History of right-sided carotid endarterectomy Code(s): Z98.890 - OTHER SPECIFIED POSTPROCEDURAL STATES (6) Hyperlipidemia Code(s): E78.5 - HYPERLIPIDEMIA, UNSPECIFIED Qualifiers: Hyperlipidemia type: pure hypercholesterolemia Qualified Code(s): E78.00 - Pure hypercholesterolemia, unspecified; E78.0 - Pure hypercholesterolemia (7) S/P coronary artery stent placement Code(s): Z95.5 - PRESENCE OF CORONARY ANGIOPLASTY IMPLANT AND GRAFT (8) Weakness Code(s): R53.1 - WEAKNESS Assessment/Plan 1. Bilateral lower extremity weakness with gait instability, etiology to be determined 2. CAD post PCI (stent) angina pectoris 3. 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 HTN/HCVD 5. Hyperlipidemia 6. Carotid stenosis post right CEA 7. History of abdominal aortic aneurysm 8. Organic brain syndrome/early dementia 9. Hyponatermia most likely referable to HCTZ therapy 10. History of myalgia related to Crestor therapy administration 11. Large hiatal hernia PLAN: 1. Continue ASA 81 qd 2. Continue Altace and Bystolic as tolerated 3. May use Livalo as outpatient (Livalo is not on formulary in the hospital) 4. Abdominal US reveals 4.0 cm AAA - this can be monitored as outpatient 5. Neuro input note 6. PT and gait training would be helpful Peyman Arana MD
--- NOTE | 2017-01-18 09:43 | PN ---
Progress Note (short form) - Note Progress Note: Neurology History of Present Illness The patient is a 86 year old female with significant PMH of coronary artery disease, myocardial infarction with stents, hypertension, hyperlipidemia and a right knee replacement who presents to the emergency department with lower extremity weakness that began approximately 10 days ago. The daughter stated that the patient was fine about two weeks ago, but for the past 10 days has been unable to walk without a walker. The daughter reports that the patient drags her right leg when she walks. The daughter reported recent memory loss. No other symptoms were reported by the patient. The patient is currently taking Livalo for her hyperlipidemia. She completed CT head which did not show any acute changes. Her limitation may be complicated by prior R knee surgery. MRI brain completed and reviewed, did not show acute changes. No evidence of NPH. MRI L spine reviewed and DDD noted with L5/S1 and L sided narrowing, L4/L5 bulging without severe stenosis. Of note, abdominal aortic aneurysm noted and hiatal hernia. She is sitting up in chair and is in agreement with rehab placement. Active Medications Acetaminophen (Tylenol -) 650 mg PO Q6H PRN PRN Reason: FEVER OR PAIN Last Admin: 01/16/17 01:07 Dose: 650 mg Aspirin (Asa -) 81 mg PO DAILY [facility] Last Admin: 01/17/17 09:00 Dose: 81 mg Heparin Sodium (Porcine) (Heparin -) 5,000 unit SQ BID [facility] Last Admin: 01/17/17 22:03 Dose: 5,000 unit Nebivolol (Bystolic -) 5 mg PO DAILY [facility] Last Admin: 01/17/17 09:00 Dose: 5 mg Pantoprazole Sodium (Protonix -) 40 mg PO DAILY [facility] Last Admin: 01/17/17 12:20 Dose: 40 mg Ramipril (Altace -) 10 mg PO BID [facility] Last Admin: 01/17/17 22:03 Dose: 10 mg *Physical Exam Vital Signs Temperature 98.3 F 01/18/17 06:27 Pulse Rate 73 01/18/17 06:27 Respiratory Rate 18 01/18/17 06:27 Blood Pressure 117/64 01/18/17 06:27 O2 Sat by Pulse Oximetry (%) 94 L 01/17/17 21:00 GENERAL: Awake, alert, and fully oriented. HEAD: No signs of trauma EYES: PERRLA, EOMI, sclera anicteric, conjunctiva clear ENT: Auricles normal inspection, hearing grossly normal, nares patent, oropharynx clear without exudates. Moist mucosa NECK: Normal ROM, supple, no lymphadenopathy, JVD, or masses LUNGS: Breath sounds equal, clear to auscultation bilaterally. No wheezes, and no crackles HEART: Regular rate and rhythm, normal S1 and S2, no murmurs, rubs or gallops ABDOMEN: Soft, nontender, normoactive bowel sounds. No guarding, no rebound. No masses EXTREMITIES: (+) Right lower extremity weakness, 4/5 plantar flexion, 4/5 dorsiflexion. No clubbing or cyanosis. No cords, erythema, or tenderness NEUROLOGICAL: Cranial nerves II through XII grossly intact. Normal speech, sensory intact, 5-/5 in LLE, 4+/5 in RLE, gait deferred SKIN: Warm, Dry, normal turgor, no rashes or lesions noted. CBCD WBC 4.8 K/mm3 (4.0-10.0) 01/18/17 06:30 RBC 4.09 M/mm3 (3.60-5.2) 01/18/17 06:30 Hgb 11.8 GM/dL (10.7-15.3) 01/18/17 06:30 Hct 35.1 % (32.4-45.2) 01/18/17 06:30 MCV 85.9 fl (80-96) 01/18/17 06:30 MCHC 33.5 g/dl (32.0-36.0) 01/18/17 06:30 RDW 15.3 % (11.6-15.6) 01/18/17 06:30 Plt Count 290 K/MM3 (134-434) 01/18/17 06:30 MPV 7.8 fl (7.5-11.1) 01/18/17 06:30 CMP Sodium 136 mmol/L (136-145) 01/18/17 06:30 Potassium 4.5 mmol/L (3.5-5.1) 01/18/17 06:30 Chloride 102 mmol/L (98-107) 01/18/17 06:30 Carbon Dioxide 27 mmol/L (21-32) 01/18/17 06:30 Anion Gap 7 (8-16) L 01/18/17 06:30 BUN 29 mg/dL (7-18) H D 01/18/17 06:30 Creatinine 0.9 mg/dL (0.55-1.02) 01/18/17 06:30 Creat Clearance w eGFR > 60 (>60) 01/15/17 11:42 Calcium 8.9 mg/dL (8.5-10.1) 01/18/17 06:30 Total Bilirubin 0.4 mg/dL (0.2-1.0) 01/15/17 11:42 AST 22 U/L (15-37) 01/15/17 11:42 ALT 22 U/L (12-78) 01/15/17 11:42 Alkaline Phosphatase 110 U/L (45-117) 01/15/17 11:42 Total Protein 7.3 g/dl (6.4-8.2) 01/15/17 11:42 Albumin 3.6 g/dl (3.4-5.0) 01/15/17 11:42 CT head reviewed, Impression: Generalized volume loss with moderate to marked ventricular dilatation and periventricular chronic microvascular ischemic disease changes. No gross acute intracranial pathology is identified MRI Brain & MRI L spine reviewed Medical Decision Making 86 year old female with significant PMH of coronary artery disease, myocardial infarction with stents, hypertension, hyperlipidemia and a right knee replacement who presents to the emergency department with lower extremity weakness that began approximately 10 days ago. The daughter states that the patient was fine about two weeks ago, but for the past 10 days has been unable to walk without a walker. MRI brain completed and reviewed, did not show acute changes. No evidence of NPH. MRI L spine reviewed and DDD noted with L5/S1 and L sided narrowing, L4/L5 bulging without severe stenosis. Of note, abdominal aortic aneurysm noted and hiatal hernia. She is sitting up in chair and is in agreement with rehab placement. Limitation may be more mechanical and Orthopedic Livalo changed to Lipitor, possible myagia 2/2 to medication.
[2017-01-18] MEDS ORDERED: PT OWN MED DRAWER 7, Y5N ONE (09:55)
[2017-01-18] MEDS: PANTOPRAZOLE 40 MG TABLET (FP) PO SCH (10:03)
[2017-01-18] MEDS: RAMIPRIL 5 MG CAPSULE (FP) PO SCH ×2 (10:03→21:07)
[2017-01-18] MEDS: HEPARIN NA (PORCINE) 5,000 UNITS/ML 1ML VIAL SQ SCH ×2 (10:03→21:06)
[2017-01-18] MEDS: NEBIVOLOL 5 MG TABLET (FP) PO SCH (10:03)
[2017-01-18] MEDS: ASPIRIN 81 MG CHEWABLE TABLETS PO SCH (10:03)
--- NOTE | 2017-01-18 10:23 | CON.GI ---
Consult Consult Specialty:: GI: Dr. Horton for Dr. Noriega Referred by:: Dr. Kristina Sexton Reason for Consultation:: Hiatal hernia - History of Present Illness Chief Complaint: "I don't remember. I think I pased out or was weak" History of Present Illness: 86F admitted through [facility] ER for evaluation of weakness. Ms. West is a poor historian therefore the reason for her admission was obtained from the chart. asked to evaluate hatal hernia. CT scan of the chest 01/16/17 revealed a large hiatal hernia with mod/severe narrowing of the left lower lobe bronchus between the hiatal hernia and left pulmonary artey. Ms. West explains that she receives her medical care in [place], including GI care. she thinks she had an EGD and colonoscopy in the past in [place] and recalls being told of a hiatal hernia in the past. she denies chest pain, cough, dysphagia or abdominal pain. she does describes some shortness of breath with activity. She had one episode of vomiting prior to admission. She denies diarrhea, rectal bleeding, melena or change in bowel habits. There is no history of recurrent PNA. - History Source History Provided By: Patient, Medical Record Limitations to Obtaining History: Poor Historian - Past Medical History Cardio/Vascular: Yes: CAD, HTN, Hyperlipdemia, [place] - Past Surgical History Past Surgical History: Yes: Joint Replacement (right knee) Additional Surgical History: cardiac stent - Alcohol/Substance Use Hx Alcohol Use: No History of Substance Use: reports: None - Smoking History Smoking history: Never smoked Have you smoked in the past 12 months: No - Social History Usual Living Arrangement: With Spouse ADL: Independent Place of : [facility] History of Recent Travel: No Home Medications - Allergies Allergies/Adverse Reactions: Allergies Allergy/AdvReac Type Severity Reaction Status Date / Time rosuvastatin calcium AdvReac Verified 01/15/17 10:36 [From Crestor] - Home Medications Home Medications: Ambulatory Orders Alprazolam [Xanax] 0.25 mg PO Q8H 01/15/17 Aspirin [ASA -] 81 mg PO DAILY 01/15/17 Diphenhydramine HCl [Benadryl -] 25 mg PO HS PRN 01/15/17 Esomeprazole Magnesium [Nexium 24Hr] 22.3 mg PO DAILY 01/15/17 Hydrochlorothiazide [Hctz -] 25 mg PO DAILY 01/15/17 Pitavastatin Calcium [Livalo] 2 mg PO DAILY 01/15/17 Ramipril 10 mg PO BID 01/15/17 Family Disease History - Family Disease History Family Disease History: Other: Father ( 60's: heart problem), Mother ( 60's: heart problem), Sister (3: : Heart prblems), Son (2: healthy), Daughter (1: healthy) Other Family History: denies family history of colorectal cancer Review of Systems - Review of Systems Constitutional: reports: Weakness. denies: Chills Cardiovascular: reports: Shortness of Breath (As in HPI). denies: Chest Pain Respiratory: reports: SOB (as in HPI). denies: Cough Gastrointestinal: reports: Vomiting (x 1 prior to admission). denies: Abdominal Pain, Constipation, Diarrhea, Dysphagia, Melena, Nausea, Rectal Bleeding Physical Exam-GI Vital Signs: Vital Signs Temperature 98.3 F 01/18/17 06:27 Pulse Rate 73 01/18/17 06:27 Respiratory Rate 18 01/18/17 06:27 Blood Pressure 117/64 01/18/17 06:27 O2 Sat by Pulse Oximetry (%) 94 L 01/17/17 21:00 Constitutional: Yes: Calm Eyes: No: Sclera Icterus Cardiovascular: Yes: Regular Rate and Rhythm. No: Murmur Respiratory: Yes: CTA Bilaterally Gastrointestinal Inspection: No: Distention ...Auscultate: Yes: Normoactive Bowel Sounds ...Palpate: No: Hepatomegaly, Splenomegaly, Tenderness ...Percussion: No: Tympanitic Edema: No (No LE edema) Neurological: Yes: Alert Labs: CBC, BMP 01/18/17 06:30 01/18/17 06:30 Problem List - Problems (1) Hiatal hernia Assessment/Plan: Ms. West's hiatal hernia does not seem to be impcting or the cause of her current admission. Given her advanced age and comorbidities, elective surgical correction and the potential risks involved would need to be discussed with a surgeon (likely bariatric surgeon and cardiothoracic surgeon), Ms. West and her family. if she remains asymptoomatic risks likely outweigh benefits. when her acute issues are resoved this can be discussed further with her fitness trainer in [place] (unclear if this has been discussed and addressed in the past already) or with Dr. Mohamud as outpatient. Aspiration precautions and keep head of bed elevated 30-35 degrees. Code(s): K44.9 - DIAPHRAGMATIC HERNIA WITHOUT OBSTRUCTION OR GANGRENE
--- NOTE | 2017-01-18 11:49 | DS ---
Physical Examination Vital Signs: Vital Signs Temperature 98.3 F 01/18/17 06:27 Pulse Rate 73 01/18/17 06:27 Respiratory Rate 18 01/18/17 06:27 Blood Pressure 117/64 01/18/17 06:27 O2 Sat by Pulse Oximetry (%) 94 L 01/17/17 21:00 Findings/Remarks: OOB to chair no new c/o feels wel; plan to DC to SNF bit then pt changed her mind, spoke with her daughter and ; can not take care of her safely at home at this point so plan will still be DC to SNF close to pt's home tests results, consults and meds and f/u needed d/w pt and daughter in law Manuela Constitutional: Yes: No Distress, Calm Eyes: Yes: Conjunctiva Clear HENT: Yes: Atraumatic Neck: Yes: Supple Cardiovascular: Yes: Regular Rate and Rhythm Respiratory: Yes: CTA Bilaterally Gastrointestinal: Yes: Soft. No: Distention Renal/: No: CVA Tenderness - Left, CVA Tenderness - Right Musculoskeletal: No: Joint Stiffness, Joint Swelling Extremities: No: Cold, Cool, Cyanosis Edema: No Integumentary: No: Rash, Venous Stasis Changes Neurological: Yes: WNL, Alert, Oriented ...Motor Strength: WNL Psychiatric: Yes: WNL, Alert, Oriented. No: Agitated, Suicidal Ideation Labs: CBC, BMP 01/18/17 06:30 01/18/17 06:30 Discharge Summary Reason For Visit: WEAKNESS Current Active Problems Abdominal aortic aneurysm (AAA) 3.0 cm to 5.0 cm in diameter in female (Acute) Carotid stenosis, right (Acute) Coronary artery disease (Acute) Diastolic dysfunction without heart failure (Acute) Gait disturbance (Acute) HTN (hypertension) (Acute) Hiatal hernia (Acute) History of right-sided carotid endarterectomy (Acute) Hyperlipidemia (Acute) Hypertensive cardiomyopathy (Acute) Hyponatremia (Acute) S/P coronary artery stent placement (Acute) Weakness (Acute) Procedures: Principal: admitted with weakness and presyncope; monitored in telemetry Other Procedures: seen by cardiology and neurology; had CE, l,abs; head CT; brain MRI; echo and carotid US Hospital Course: improved with above; chest CT also done; f/u outpt as advised DC to SNF Condition: Good - Instructions Diet, Activity, Other Instructions: f/u PCP, cardiology and neurology in 2-4 weeks after DC home GI f/u for hiatal hernia; head elevation after meals see meds change (HCT DC, new nebivolol) f/u AAA US q 6 mo-1 year falls PFX f/u chest CT 3-4 months RTER if worse or recurrent Referrals: Kristina Sexton [Primary Care Provider] - Mona Noriega MD [Staff Physician] - Daniel Mcclelland MD [Staff Physician] - Cayetano Vargas MD [Staff Physician] - Disposition: LONG TERM FACILITY - Home Medications Comprehensive Discharge Medication List: Ambulatory Orders Alprazolam [Xanax] 0.25 mg PO Q8H 01/15/17 Aspirin [ASA -] 81 mg PO DAILY 01/15/17 Diphenhydramine HCl [Benadryl -] 25 mg PO HS PRN 01/15/17 Esomeprazole Magnesium [Nexium 24Hr] 22.3 mg PO DAILY 01/15/17 Hydrochlorothiazide [Hctz -] 25 mg PO DAILY 01/15/17 Pitavastatin Calcium [Livalo] 2 mg PO DAILY 01/15/17 Ramipril 10 mg PO BID 01/15/17
[2017-01-19 01:23] LABS: URINE APPEARANCE CLOUDY; URINE BILIRUBIN NEGATIVE (NEGATIVE); URINE BLOOD NEGATIVE (NEGATIVE); URINE COLOR YELLOW; URINE GLUCOSE (UA) NEGATIVE (NEGATIVE); URINE KETONE NEGATIVE (NEGATIVE); URINE NITRITE NEGATIVE (NEGATIVE); URINE PROTEIN NEGATIVE (NEGATIVE); URINE UROBILINOGEN NEGATIVE mg/dL (0.2-1.0)
--- NOTE | 2017-01-19 07:02 | PN ---
Progress Note, Physician Chief Complaint: awaiting bed in NH/SNF no new c/o - Current Medication List Current Medications: Active Medications Acetaminophen (Tylenol -) 650 mg PO Q6H PRN PRN Reason: FEVER OR PAIN Last Admin: 01/16/17 01:07 Dose: 650 mg Aspirin (Asa -) 81 mg PO DAILY [facility] Last Admin: 01/18/17 10:03 Dose: 81 mg Heparin Sodium (Porcine) (Heparin -) 5,000 unit SQ BID [facility] Last Admin: 01/18/17 21:06 Dose: 5,000 unit Nebivolol (Bystolic -) 5 mg PO DAILY [facility] Last Admin: 01/18/17 10:03 Dose: 5 mg Pantoprazole Sodium (Protonix -) 40 mg PO DAILY [facility] Last Admin: 01/18/17 10:03 Dose: 40 mg Ramipril (Altace -) 10 mg PO BID [facility] Last Admin: 01/18/17 21:07 Dose: 10 mg - Objective Vital Signs: Vital Signs Temperature 97.3 F L 01/19/17 05:50 Pulse Rate 80 01/19/17 05:50 Respiratory Rate 18 01/19/17 05:50 Blood Pressure 142/74 01/19/17 05:50 O2 Sat by Pulse Oximetry (%) 95 01/18/17 21:00 Constitutional: Yes: No Distress, Calm Eyes: Yes: Conjunctiva Clear HENT: Yes: Atraumatic Neck: Yes: Supple Cardiovascular: Yes: Regular Rate and Rhythm Respiratory: Yes: CTA Bilaterally Gastrointestinal: Yes: Soft. No: Distention, Tenderness Genitourinary: No: CVA Tenderness - Left, CVA Tenderness - Right Musculoskeletal: No: Joint Stiffness, Joint Swelling Extremities: No: Cold, Cool, Cyanosis Edema: No Integumentary: No: Rash, Venous Stasis Changes Neurological: Yes: WNL, Alert, Oriented ...Motor Strength: WNL Psychiatric: Yes: WNL, Alert, Oriented. No: Agitated, Suicidal Ideation Labs: CBC, BMP 01/18/17 06:30 01/18/17 06:30 - ....Imaging Other: Report Reviewed Assessment/Plan The patient is a 86 year old female with significant PMH of coronary artery disease, myocardial infarction with stents, hypertension, hyperlipidemia and a right knee replacement who presents to the emergency department with lower extremity weakness and some recent memory loss. Presyncope but no fall no LOC cleared by cardio and neuro for DC from H will need: cardiology and neurology f/u outpt AAA US q [address] f/u 3-4 months outpt \GI f/u for HH outpt DVT falls PFX d/w pt and staff again d/w pt do not get OOB alone, call for help if needs OOB transfer to [facility] for SNF rehab when bed available d/w pt and daughter in law; Lizette said family aware and agreed with plan and f/ u instructions
--- NOTE | 2017-01-19 09:23 | PN ---
Progress Note (short form) - Note Progress Note: Neurology History of Present Illness The patient is a 86 year old female with significant PMH of coronary artery disease, myocardial infarction with stents, hypertension, hyperlipidemia and a right knee replacement who presents to the emergency department with lower extremity weakness that began approximately 10 days ago. The daughter stated that the patient was fine about two weeks ago, but for the past 10 days has been unable to walk without a walker. The daughter reports that the patient drags her right leg when she walks. The daughter reported recent memory loss. No other symptoms were reported by the patient. The patient is currently taking Livalo for her hyperlipidemia. She completed CT head which did not show any acute changes. Her limitation may be complicated by prior R knee surgery. MRI brain completed and reviewed, did not show acute changes. No evidence of NPH. MRI L spine reviewed and DDD noted with L5/S1 and L sided narrowing, L4/L5 bulging without severe stenosis. Of note, abdominal aortic aneurysm noted and hiatal hernia. She is sitting up in chair and is in agreement with rehab placement. She is anxiously awaiting discharge. Doing well no new complaints. Active Medications Acetaminophen (Tylenol -) 650 mg PO Q6H PRN PRN Reason: FEVER OR PAIN Last Admin: 01/16/17 01:07 Dose: 650 mg Aspirin (Asa -) 81 mg PO DAILY [facility] Last Admin: 01/18/17 10:03 Dose: 81 mg Heparin Sodium (Porcine) (Heparin -) 5,000 unit SQ BID [facility] Last Admin: 01/18/17 21:06 Dose: 5,000 unit Nebivolol (Bystolic -) 5 mg PO DAILY [facility] Last Admin: 01/18/17 10:03 Dose: 5 mg Pantoprazole Sodium (Protonix -) 40 mg PO DAILY [facility] Last Admin: 01/18/17 10:03 Dose: 40 mg Ramipril (Altace -) 10 mg PO BID [facility] Last Admin: 01/18/17 21:07 Dose: 10 mg *Physical Exam Vital Signs Temperature 97.3 F L 01/19/17 05:50 Pulse Rate 80 01/19/17 05:50 Respiratory Rate 18 01/19/17 05:50 Blood Pressure 142/74 01/19/17 05:50 O2 Sat by Pulse Oximetry (%) 95 01/18/17 21:00 GENERAL: Awake, alert, and fully oriented. HEAD: No signs of trauma EYES: PERRLA, EOMI, sclera anicteric, conjunctiva clear ENT: Auricles normal inspection, hearing grossly normal, nares patent, oropharynx clear without exudates. Moist mucosa NECK: Normal ROM, supple, no lymphadenopathy, JVD, or masses LUNGS: Breath sounds equal, clear to auscultation bilaterally. No wheezes, and no crackles HEART: Regular rate and rhythm, normal S1 and S2, no murmurs, rubs or gallops ABDOMEN: Soft, nontender, normoactive bowel sounds. No guarding, no rebound. No masses EXTREMITIES: (+) Right lower extremity weakness, 4/5 plantar flexion, 4/5 dorsiflexion. No clubbing or cyanosis. No cords, erythema, or tenderness NEUROLOGICAL: Cranial nerves II through XII grossly intact. Normal speech, sensory intact, 5-/5 in LLE, 4+/5 in RLE, gait deferred SKIN: Warm, Dry, normal turgor, no rashes or lesions noted. CBCD WBC 4.8 K/mm3 (4.0-10.0) 01/18/17 06:30 RBC 4.09 M/mm3 (3.60-5.2) 01/18/17 06:30 Hgb 11.8 GM/dL (10.7-15.3) 01/18/17 06:30 Hct 35.1 % (32.4-45.2) 01/18/17 06:30 MCV 85.9 fl (80-96) 01/18/17 06:30 MCHC 33.5 g/dl (32.0-36.0) 01/18/17 06:30 RDW 15.3 % (11.6-15.6) 01/18/17 06:30 Plt Count 290 K/MM3 (134-434) 01/18/17 06:30 MPV 7.8 fl (7.5-11.1) 01/18/17 06:30 CMP Sodium 136 mmol/L (136-145) 01/18/17 06:30 Potassium 4.5 mmol/L (3.5-5.1) 01/18/17 06:30 Chloride 102 mmol/L (98-107) 01/18/17 06:30 Carbon Dioxide 27 mmol/L (21-32) 01/18/17 06:30 Anion Gap 7 (8-16) L 01/18/17 06:30 BUN 29 mg/dL (7-18) H D 01/18/17 06:30 Creatinine 0.9 mg/dL (0.55-1.02) 01/18/17 06:30 Creat Clearance w eGFR > 60 (>60) 01/15/17 11:42 Calcium 8.9 mg/dL (8.5-10.1) 01/18/17 06:30 Total Bilirubin 0.4 mg/dL (0.2-1.0) 01/15/17 11:42 AST 22 U/L (15-37) 01/15/17 11:42 ALT 22 U/L (12-78) 01/15/17 11:42 Alkaline Phosphatase 110 U/L (45-117) 01/15/17 11:42 Total Protein 7.3 g/dl (6.4-8.2) 01/15/17 11:42 Albumin 3.6 g/dl (3.4-5.0) 01/15/17 11:42 CT head reviewed, Impression: Generalized volume loss with moderate to marked ventricular dilatation and periventricular chronic microvascular ischemic disease changes. No gross acute intracranial pathology is identified MRI Brain & MRI L spine reviewed Medical Decision Making 86 year old female with significant PMH of coronary artery disease, myocardial infarction with stents, hypertension, hyperlipidemia and a right knee replacement who presents to the emergency department with lower extremity weakness that began approximately 10 days ago. The daughter states that the patient was fine about two weeks ago, but for the past 10 days has been unable to walk without a walker. MRI brain completed and reviewed, did not show acute changes. No evidence of NPH. MRI L spine reviewed and DDD noted with L5/S1 and L sided narrowing, L4/L5 bulging without severe stenosis. Of note, abdominal aortic aneurysm noted and hiatal hernia. She is sitting up in chair and is in agreement with rehab placement. Limitation may be more mechanical and Orthopedic Livalo changed to Lipitor, possible myagia 2/2 to medication. New new complaints.
[2017-01-19 09:57] LABS: URINE LEUK ESTERASE 1+ (NEGATIVE)
[2017-01-19] MEDS: NEBIVOLOL 5 MG TABLET (FP) PO SCH (10:20)
[2017-01-19] MEDS: RAMIPRIL 5 MG CAPSULE (FP) PO SCH (10:20)
--- NOTE | 2017-01-19 10:33 | PN ---
Progress Note, Physician History of Present Illness: LE weakness improving with PT assistance. - Current Medication List Current Medications: Active Medications Acetaminophen (Tylenol -) 650 mg PO Q6H PRN PRN Reason: FEVER OR PAIN Last Admin: 01/16/17 01:07 Dose: 650 mg Aspirin (Asa -) 81 mg PO DAILY [facility] Last Admin: 01/18/17 10:03 Dose: 81 mg Heparin Sodium (Porcine) (Heparin -) 5,000 unit SQ BID [facility] Last Admin: 01/18/17 21:06 Dose: 5,000 unit Nebivolol (Bystolic -) 5 mg PO DAILY [facility] Last Admin: 01/18/17 10:03 Dose: 5 mg Pantoprazole Sodium (Protonix -) 40 mg PO DAILY [facility] Last Admin: 01/18/17 10:03 Dose: 40 mg Ramipril (Altace -) 10 mg PO BID [facility] Last Admin: 01/18/17 21:07 Dose: 10 mg - Objective Vital Signs: Vital Signs Temperature 97.3 F L 01/19/17 05:50 Pulse Rate 80 01/19/17 05:50 Respiratory Rate 18 01/19/17 05:50 Blood Pressure 142/74 01/19/17 05:50 O2 Sat by Pulse Oximetry (%) 95 01/18/17 21:00 Constitutional: Yes: No Distress, Calm Neck: Yes: Supple Cardiovascular: Yes: Regular Rate and Rhythm Respiratory: Yes: Regular, Diminished Gastrointestinal: Yes: Normal Bowel Sounds, Soft Edema: No Labs: CBC, BMP 01/18/17 06:30 01/18/17 06:30 - ....Imaging Ultrasound: Report Reviewed (4.0 cm AAA) Problem List - Problems (1) Coronary artery disease Code(s): I25.10 - ATHSCL HEART DISEASE OF [place] CORONARY ARTERY W/O ANG PCTRS Qualifiers: Coronary Disease-Associated Artery/Lesion type: [place] artery [place] vs. transplanted heart: [place] heart Associated angina: without angina Qualified Code(s): I25.10 - Atherosclerotic heart disease of [place] coronary artery without angina pectoris (2) S/P coronary artery stent placement Code(s): Z95.5 - PRESENCE OF CORONARY ANGIOPLASTY IMPLANT AND GRAFT (3) Hyperlipidemia Code(s): E78.5 - HYPERLIPIDEMIA, UNSPECIFIED Qualifiers: Hyperlipidemia type: pure hypercholesterolemia Qualified Code(s): E78.00 - Pure hypercholesterolemia, unspecified; E78.0 - Pure hypercholesterolemia (4) Hypertensive cardiomyopathy Code(s): I11.9 - HYPERTENSIVE HEART DISEASE WITHOUT HEART FAILURE; I43 - CARDIOMYOPATHY IN DISEASES CLASSIFIED ELSEWHERE Qualifiers: Heart failure presence: without heart failure Qualified Code(s): I11.9 - Hypertensive heart disease without heart failure; I43 - Cardiomyopathy in diseases classified elsewhere; I43 - Cardiomyopathy in diseases classified elsewhere; I43 - Cardiomyopathy in diseases classified elsewhere; I43 - Cardiomyopathy in diseases classified elsewhere (5) Diastolic dysfunction without heart failure Code(s): I51.9 - HEART DISEASE, UNSPECIFIED (6) Carotid stenosis, right Code(s): I65.21 - OCCLUSION AND STENOSIS OF RIGHT CAROTID ARTERY (7) History of right-sided carotid endarterectomy Code(s): Z98.890 - OTHER SPECIFIED POSTPROCEDURAL STATES (8) Abdominal aortic aneurysm (AAA) 3.0 cm to 5.0 cm in diameter in female Code(s): I71.4 - ABDOMINAL AORTIC ANEURYSM, WITHOUT RUPTURE (9) Weakness Code(s): R53.1 - WEAKNESS (10) Hyponatremia Code(s): E87.1 - HYPO-OSMOLALITY AND HYPONATREMIA (11) Gait disturbance Code(s): R26.9 - UNSPECIFIED ABNORMALITIES OF GAIT AND MOBILITY Assessment/Plan 1. Bilateral lower extremity weakness with gait instability, etiology to be determined 2. CAD post PCI (stent) angina pectoris 3. 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 HTN/HCVD 5. Hyperlipidemia 6. Carotid stenosis post right CEA 7. 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 Hyponatermia most likely referable to HCTZ therapy 10. History of myalgia related to Crestor therapy administration 11. Large hiatal hernia PLAN: 1. Continue ASA 81 qd, Altace 10 bid and Bystolic 5 qd 2. May use Livalo as outpatient (Livalo is not on formulary in the hospital) 3. Neuro input noted, MRI report reviewed 4. PT and gait training->SNF 5. DVT and GI prophylaxis
[2017-01-19 10:43] LABS: URINE BACTERIA RARE /hpf (NEGATIVE); URINE RBC 0-3 /hpf (0-3)
[2017-01-19] MEDS: PANTOPRAZOLE 40 MG TABLET (FP) PO SCH (11:01)
[2017-01-19] MEDS: HEPARIN NA (PORCINE) 5,000 UNITS/ML 1ML VIAL SQ SCH (11:01)
[2017-01-19] MEDS: ASPIRIN 81 MG CHEWABLE TABLETS PO SCH (11:02)
[2017-01-19 15:27] VITALS: TEMP 97.6
[2017-01-19 16:20] VITALS: BP 126/71; PULSE 83
[2017-01-20 06:16] LABS: SERUM IRON 202 ug/dL (27-139)
== END 2017-01-19 17:11 | DRG 556 ==
LOC: JER 10:21 → JERBED 12:53 → J4S 15:54
PROVIDERS: ADMIT Internal Medicine; ATTEND Internal Medicine
DX: M79.1 Myalgia (principal); I50.1 Left ventricular failure, unspecified; E87.1 Hypo-osmolality and hyponatremia; R55 Syncope and collapse; T88.7XXA Unspecified adverse effect of drug or medicament, initial encounter; K44.9 Diaphragmatic hernia without obstruction or gangrene; I25.119 Atherosclerotic heart disease of native coronary artery with unspecified angina pectoris; Z98.61 Coronary angioplasty status; E78.5 Hyperlipidemia, unspecified; I11.0 Hypertensive heart disease with heart failure; F09 Unspecified mental disorder due to known physiological condition; F03.90 Unspecified dementia, unspecified severity, without behavioral disturbance, psychotic disturbance, mood disturbance, and anxiety; R26.9 Unspecified abnormalities of gait and mobility; R53.1 Weakness
CPT/HCPCS: 36415; 70450-TC; 70551-TC; 71010-TC; 71250-TC; 72148-TC; 76775-TC; 80048; 80053; 81003; 81015; 82550; 82607; 83540; 83605; 83735; 84443; 84484; 85025; 85651; 86038; 86593; 86618; 86780; 87086; 93005; 93010; 93306-TC; 93880-TC; 97116-GP; 97161-GP; 99285-25; J1644